=== PATIENT | male | born 1955 | race African-American/Black ===

== ENCOUNTER 2018-08-24 22:06 | Emergency (ER) | payer MEDICAID ==
[~2018-08-24] VITALS: Ht 172.7 cm; Wt 101.0 kg
[~2018-08-24 22:06] MED LIST: AMI2 PO; AMLO10TA4 PO; ASPI-1159 PO; ATOR10TA PO; Aspirin PO; Clonidine Hcl PO; Colchicine PO; Docusate Sodium PO; ETOMIDATE 2MG/ML 10ML VIAL IV ONE; LOSA100T3 PO; Magnesium Oxide PO; Metoprolol Tartrate PO; SODIUM CHLORIDE 0.9% 10ML VIAL ONE; VECURONIUM BROMIDE 10 MG/VIAL IV ONE
[2018-08-24] MEDS ORDERED: ONDANSETRON HCL 4MG/2ML INJ IV STA (22:18)
[2018-08-24] MEDS ORDERED: MORPHINE SULFATE 4 MG/ML CPJ (NOT FOR IM USE) IV ONE (22:30)
[2018-08-24] MEDS ORDERED: DEXAMETHASONE 10 MG/ML VIAL IV ONE (22:45)
[2018-08-24] MEDS ORDERED: PROPOFOL 10MG/ML 100ML 100 ML IV ONE (22:45)
[2018-08-24] MEDS ORDERED: HYDRALAZINE 20MG/ML VIAL IV ONE (22:45)
[2018-08-24] MEDS ORDERED: MANNITOL 12.5G (25%) VIAL 50ML IV ONE (22:45)
[2018-08-24] MEDS ORDERED: LORAZEPAM 2MG/ML CPJ IV ONE (22:45)
[2018-08-24] MEDS ORDERED: VECURONIUM BROMIDE 10 MG/VIAL IV ONE (22:45)
[2018-08-24] MEDS ORDERED: ETOMIDATE 2MG/ML 10ML VIAL IV ONE (22:45)
[2018-08-24] MEDS ORDERED: NICARDIPINE 50 MG in SODIUM CHLORIDE 0.9% 230 ML IV PRN ×2 (22:45→23:00)
[2018-08-24] MEDS ORDERED: LEVETIRACETAM 500MG PREMIX 100 ML IV ONE (22:45)
[2018-08-24] MEDS ORDERED: LORAZEPAM 2MG/ML CPJ ONE (22:45)
[2018-08-24 23:12] LABS: BASOPHILS % 0.9 % (0.0-2.0); HEMOGLOBIN. 14.3 g/dL (14.0-18.0); LYMPHOCYTES % 36.7 % (20.0-50.0); MEAN CORPUSCULAR HEMOGLOBIN 28.6 pg (28.0-32.0); MEAN CORPUSCULAR VOLUME 87.6 fL (80.0-94.0); MEAN PLATELET VOLUME 9.1 fl (7.4-10.4); MONOCYTES % 9.7 % (2.0-8.0); NEUTROPHILS % 50.7 % (40.0-76.0); PLATELET 339 x1000/uL (130-400); RED BLOOD CELL COUNT 5.02 mill/uL (4.7-6.1); RED CELL DISTRIBUTION WIDTH 14.8 % (11.6-14.6)
[2018-08-24 23:16] LABS: CHLORIDE 110 mEq/L (98-107)
[2018-08-24 23:18] LABS: INR 1.1; PROTHROMBIN TIME 10.7 sec (9.1-11.1)
[2018-08-24 23:20] LABS: ETHANOL BLOOD < 10 mg/dL
[2018-08-24 23:24] LABS: LDL CHOLESTEROL 72 mg/dL (5-100)
[2018-08-24 23:41] LABS: CLARITY URINE CLEAR (CLEAR); COLOR URINE YELLOW (YELLOW); KETONES URINE NEGATIVE (NEGATIVE); LEUKOCYTE ESTERASE URINE NEGATIVE (NEGATIVE); NITRITE URINE NEGATIVE (NEGATIVE); OCCULT BLOOD URINE NEGATIVE (NEGATIVE); PROTEIN URINE NEGATIVE (NEGATIVE); SPECIFIC GRAVITY URINE 1.006 (1.005-1.030); UROBILINOGEN URINE 0.2 E.U./dL (0.2-1.0)
[2018-08-24] MEDS ORDERED: DESMOPRESSIN ACETATE 4MCG/ML AMP IV ONE (23:45)
[2018-08-25] MEDS ORDERED: KCL 20MEQ/100ML PREMIX 100 ML IV ONE (00:15)
[2018-08-25 00:20] LABS: *AMPHETAMINES SCREEN URINE NEGATIVE (NEGATIVE); *BARBITURATES SCREEN URINE NEGATIVE (NEGATIVE); *BENZODIAZEPINES SCREEN URINE NEGATIVE (NEGATIVE); *COCAINE SCREEN URINE NEGATIVE (NEGATIVE)
[2018-08-25 00:21] LABS: CANNABINOID URINE SCREEN NEGATIVE (NEGATIVE); METHADONE URINE SCREEN NEGATIVE (NEGATIVE); OPIATES URINE SCREEN NEGATIVE (NEGATIVE); PHENCYCLIDINE URINE SCREEN NEGATIVE (NEGATIVE)
[2018-08-25 00:29] LABS: BG BASE EXCESS -1.6 mmol/L (-2.0-2.0); BG CARBOXYHEMOGLOBIN 1.4 % (0.5-1.5); BG DEOXYHEMOGLOBIN 0.9 % (0.0-5.0); BG FRACTION INSPIRED OXYGEN 100; BG HCO3 ACT 22.2 mmol/L (22.0-26.0); BG METHEMOGLOBIN 0.3 % (0.0-1.5); BG OXYGEN SATURATION 99.1 % (92.0-98.5); BG OXYHEMOGLOBIN 97.4 % (94.0-97.0); BG PCO2 34.7 mmHg (35.0-45.0); BG PH 7.423 (7.350-7.450); BG PO2 170.5 mmHg (75.0-100.0); BG SAMPLE SITE RIGHT RADIAL; BG TIDAL VOLUME(mL) 600 mL; BG VENT MODE VENT - A/C; BG VENT RATE 16 set
[2018-08-25 00:36] VITALS: BP 152/94
== END 2018-08-25 01:04 | disposition short-term general hospital (02) ==
LOC: ER 22:06 → CANBEDREQ 08-25 02:34
DX: I60.9 Nontraumatic subarachnoid hemorrhage, unspecified (principal); I11.9 Hypertensive heart disease without heart failure; I50.9 Heart failure, unspecified; R55 Syncope and collapse; J96.90 Respiratory failure, unspecified, unspecified whether with hypoxia or hypercapnia; I48.91 Unspecified atrial fibrillation; Z98.890 Other specified postprocedural states; Z79.899 Other long term (current) drug therapy
CPT/HCPCS: 31500; 36415; 36430; 36556; 36600; 51702; 70450; 71045; 80053; 80305; 80320; 81003; 82375; 82805; 82962; 83721; 83880; 84484; 85025; 85610; 86850; 86900; 86901; 93005; 94002; 96365; 96366; 96375; 99291; J0360; J1100; J1953; J2060; J2150; J2597; J2704; J3480; J3490; J7050; Z7610; G0480